=== PATIENT | male | born 1970 | race Caucasian/White ===

== ENCOUNTER 2021-02-15 00:35 | Inpatient (IN) ==
[2021-02-15] MEDS ORDERED: Ondansetron 4 MG/2 ML VIAL IVP ONE ×2 (03:38→04:24)
[2021-02-15] MEDS ORDERED: Ondansetron 4 MG/2 ML VIAL ONE (03:39)
[2021-02-15 04:11] LABS: Basophils % 0.2 %; Hematocrit 39.6 % (37.5-50.1); Hemoglobin 12.4 g/dL (12.9-16.9); Immature Granulocytes % 0.4 % (0-4); Lymphocytes # 0.6 K/mcL (0.6-4.6); Lymphocytes % 6.8 %; Mean Corpuscular HGB Conc 31.3 g/dL (31.6-35.5); Mean Corpuscular Hemoglobin 27.3 pg (28.0-33.3); Mean Platelet Volume 11.5 fL (9.4-12.4); Monocytes # 0.5 K/mcL (0.0-1.3); Monocytes % 5.8 %; Nucleated Red Blood Cells 0.2 /100 WBC (0); Platelet Count 176 K/mcL (140-400); Red Blood Count 4.55 M/mcL (4.19-5.50); Red Cell Distribution Width 15.3 % (11.5-14.5); Segmented Neutrophils % 86.8 %; White Blood Count 9.3 K/mcL (4.3-11.1)
[2021-02-15 04:14] LABS: VBG HCO3 36 mEq/L (21-27); VBG PCO2 66 mmHg (41-51); VBG PH 7.34 pH Units (7.32-7.42); VBG PO2 34 mmHg (25-50)
[2021-02-15] MEDS ORDERED: Prochlorperazine 10 MG/2 ML VIAL IVP ONE (04:25)
[2021-02-15 04:32] LABS: Alanine Aminotransferase 21 Units/L (7-52); Albumin 4.6 g/dL (3.5-5.7); Albumin/Globulin Ratio 1.4 (1.1-2.2); Alkaline Phosphatase 81 Units/L (34-104); Aspartate Amino Transferase 22 Units/L (13-39); BUN/Creatinine Ratio 22 (6-26); Bilirubin,Direct 0.1 mg/dL (0.0-0.2); Bilirubin,Indirect 0.6 mg/dL (0.0-1.0); Bilirubin,Total 0.7 mg/dL (0.3-1.0); Blood Urea Nitrogen 21 mg/dL (6-20); Calcium 10.3 mg/dL (8.6-10.3); Carbon Dioxide 34 mEq/L (23-29); Chloride 97 mEq/L (98-107); Globulin 3.3 g/dL (2.4-3.5); Glucose 244 mg/dL (70-105); Lipase 299 Units/L (11-82); Osmolality,Calculated 299 (280-300); Sodium 139 mEq/L (136-145); Total Protein 7.9 g/dL (6.4-8.9); eGFR For African Americans > 60 (> 60); eGFR For Non-African Americans > 60 (> 60)
[2021-02-15] MEDS ORDERED: 0.9 % Sodium Chloride 1,000 ML IVC ONE (04:47)
[2021-02-15] MEDS ORDERED: Isovue-370 500 ML BOTTLE IVP ONE (04:48)
[2021-02-15] MEDS ORDERED: Naloxone 0.4 MG/ML INJ IVP PRN (05:52)
[2021-02-15] MEDS ORDERED: Ondansetron 4 MG/2 ML VIAL IVP PRN (05:52)
[2021-02-15] MEDS ORDERED: *HR* Promethazine 25 MG/ML VIAL IM PRN (06:00)
[2021-02-15] MEDS ORDERED: *HR* Dextrose 50 % in Water (Vial) 50 ML VIAL IVP PRN (06:07)
[2021-02-15] MEDS ORDERED: D5% in Water 1,000 ML IVC PRN (06:07)
[2021-02-15] MEDS ORDERED: Dextrose Gel 15 GM/37.5 ML TUBE PO PRN ×2 (06:07)
[2021-02-15 06:17] LABS: Adenovirus Not Detected (Not Detect); Bordetella Pertussis Not Detected (Not Detect); Chlamydophila pneumoniae Not Detected (Not Detect); Coronavirus 229E Not Detected (Not Detect); Coronavirus HKU1 Not Detected (Not Detect); Coronavirus NL63 Not Detected (Not Detect); Coronavirus OC43 Not Detected (Not Detect); Human Metapneumovirus Not Detected (Not Detect); Human Rhinovirus/Enterovirus Not Detected (Not Detect); Influenza A Subtype 2009 H1 Not Detected (Not Detect); Influenza B Not Detected (Not Detect); Mycoplasma pneumoniae Not Detected (Not Detect); Parainfluenza Virus 1 Not Detected (Not Detect); Parainfluenza Virus 2 Not Detected (Not Detect); Parainfluenza Virus 3 Not Detected (Not Detect); Parainfluenza Virus 4 Not Detected (Not Detect); Respiratory Syncytial Virus Not Detected (Not Detect); SARS-CoV-2 Not Detected (Not Detect)
[2021-02-15 07:20] LABS: Chol/HDL Ratio 2.5 (0-4.9); Cholesterol 137 mg/dL (< 200); Ethanol < 10 mg/dL (Less than 10); HDL Cholesterol 55 mg/dL (40-59); LDL Cholesterol,Calculated 72 mg/dL (< 100); Magnesium 2.3 mg/dL (1.6-2.6); Triglycerides 51 mg/dL (< 150)
[2021-02-15] MEDS: Insulin LISPRO 300 UNITS/3 ML VIAL SUBQ SCH ×3 (10:00→17:39)
[2021-02-15] MEDS: *HR* Enoxaparin 40 MG/0.4 ML SYRINGE SQ SCH (10:16)
[2021-02-15] MEDS: Ringers Solution, Lactated 1,000 ML IVC SCH ×3 (10:16→20:12)
[2021-02-15 11:00] LABS: Estimated Average Glucose 154 mg/dl
[2021-02-15 13:27] LABS: Bilirubin,Urine Negative (Negative); Blood,Urine Negative (Negative); Clarity,Urine Clear (Clear); Color,Urine Yellow (Yellow); Glucose,Urine (UA) 30 mg/dL (Normal); Ketones,Urine Trace mg/dL (Negative); Leukocyte Esterase,Urine Negative (Negative); Nitrite,Urine Negative (Negative); Protein,Urine 30 mg/dL (Neg-Trace); RBC,Urine 0-3 per hpf (0-3); Specific Gravity,Urine > 1.030 (1.010-1.025); Urobilinogen,Urine Normal (Normal); WBC,Urine 0-3 per hpf (0-3)
[2021-02-15 13:28] LABS: Mucus,Urine Few per lpf (None-Few)
[2021-02-15 13:38] LABS: Amphetamine Screen,Urine Negative ng/mL (Cutoff=1000); Barbiturate Screen,Urine Negative ng/mL (Cutoff=200); Benzodiazepines Screen,Urine Negative ng/mL (Cutoff=200); Cannabinoid Screen,Urine Negative ng/mL (Cutoff = 50); Cocaine Screen,Urine Negative ng/mL (Cutoff= 300); Opiate Screen,Urine Negative ng/mL (Cutoff=300); Phencyclidine Screen,Urine Negative ng/mL (Cutoff=25)
[2021-02-16] MEDS: Ringers Solution, Lactated 1,000 ML IVC SCH ×5 (00:50→23:41)
[2021-02-16 06:15] LABS: Basophils % 0.1 %; Hematocrit 39.8 % (37.5-50.1); Hemoglobin 12.7 g/dL (12.9-16.9); Immature Granulocytes % 0.5 % (0-4); Lymphocytes # 0.7 K/mcL (0.6-4.6); Lymphocytes % 4.8 %; Mean Corpuscular HGB Conc 31.9 g/dL (31.6-35.5); Mean Corpuscular Hemoglobin 27.7 pg (28.0-33.3); Mean Corpuscular Volume 86.9 fL (83.0-100.0); Mean Platelet Volume 11.6 fL (9.4-12.4); Monocytes # 0.9 K/mcL (0.0-1.3); Monocytes % 6.2 %; Neutrophils # 13.4 K/mcL (1.6-8.9); Platelet Count 167 K/mcL (140-400); Red Blood Count 4.58 M/mcL (4.19-5.50); Red Cell Distribution Width 15.6 % (11.5-14.5); Segmented Neutrophils % 88.4 %; White Blood Count 15.2 K/mcL (4.3-11.1)
[2021-02-16 06:35] LABS: Alanine Aminotransferase 17 Units/L (7-52); Albumin 4.2 g/dL (3.5-5.7); Albumin/Globulin Ratio 1.3 (1.1-2.2); Alkaline Phosphatase 67 Units/L (34-104); Aspartate Amino Transferase 17 Units/L (13-39); BUN/Creatinine Ratio 27 (6-26); Bilirubin,Total 0.8 mg/dL (0.3-1.0); Blood Urea Nitrogen 22 mg/dL (6-20); Carbon Dioxide 35 mEq/L (23-29); Chloride 91 mEq/L (98-107); Globulin 3.2 g/dL (2.4-3.5); Glucose 190 mg/dL (70-105); Lipase 76 Units/L (11-82); Osmolality,Calculated 292 (280-300); Potassium 3.4 mEq/L (3.5-5.1); Sodium 137 mEq/L (136-145); Total Protein 7.4 g/dL (6.4-8.9); eGFR For African Americans > 60 (> 60); eGFR For Non-African Americans > 60 (> 60)
[2021-02-16 06:55] LABS: Hypochromasia Present (Not Present); Platelet Estimate Normal (Normal)
[2021-02-16] MEDS ORDERED: Ipratropium/Albuterol Neb 3 ML ONE (07:40)
[2021-02-16] MEDS ORDERED: Potassium Chloride 20 MEQ, Lidocaine 1% 2 ML in 0.9 % Sodium Chloride 250 ML IVPB ONE (07:47)
[2021-02-16] MEDS: Insulin LISPRO 300 UNITS/3 ML VIAL SUBQ SCH ×3 (07:47→17:05)
[2021-02-16] MEDS: *HR* Enoxaparin 40 MG/0.4 ML SYRINGE SQ SCH (08:13)
[2021-02-16] MEDS ORDERED: *HR* LORazepam 2 MG/ML VIAL ONE (08:16)
[2021-02-16] MEDS ORDERED: *HR* LORazepam 2 MG/ML VIAL IVP ONE (08:17)
[2021-02-16] MEDS: MetroNIDAZOLE 500 MG/100 ML 500 MG/100 ML BAG IVPB SCH ×3 (10:03→23:37)
[2021-02-16] MEDS: cefTRIAXone 1,000 MG in 0.9 % Sodium Chloride Mini Bag 100 ML IVPB SCH (10:03)
[2021-02-16] MEDS: Dexmedetomidine HCl 400 MCG/100 ML MLS IVC SCH ×2 (11:45→19:33)
[2021-02-16] MEDS ORDERED: Dexmedetomidine HCl 400 MCG/100 ML MLS IVC ONE (11:46)
[2021-02-16 11:55] LABS: INR 1.2; Prothrombin Time 13.5 Seconds (9.4-12.1)
[2021-02-16] MEDS ORDERED: Potassium Chloride 40 MEQ, Lidocaine 1% 2 ML in 0.9 % Sodium Chloride 500 ML IVPB ONE (13:38)
[2021-02-16 13:57] LABS: BUN/Creatinine Ratio 25 (6-26); Blood Urea Nitrogen 21 mg/dL (6-20); Calcium 9.3 mg/dL (8.6-10.3); Carbon Dioxide 37 mEq/L (23-29); Chloride 92 mEq/L (98-107); Glucose 180 mg/dL (70-105); Magnesium 1.9 mg/dL (1.6-2.6); Osmolality,Calculated 292 (280-300); Potassium 3.3 mEq/L (3.5-5.1); Sodium 137 mEq/L (136-145); eGFR For African Americans > 60 (> 60); eGFR For Non-African Americans > 60 (> 60)
[2021-02-16] MEDS ORDERED: *HR* Succinylcholine 200 MG/10 ML VIAL IVP ONE (15:49)
[2021-02-16] MEDS ORDERED: *HR* Rocuronium Bromide 50 MG/5 ML VIAL ONE (15:49)
[2021-02-16] MEDS ORDERED: Ondansetron 4 MG/2 ML VIAL ONE (15:49)
[2021-02-16] MEDS ORDERED: *HR* Propofol 200 MG/20 ML VIAL IVP ONE (15:49)
[2021-02-16] MEDS ORDERED: Lidocaine -MPF 2% 2 ML VIAL ONE (15:50)
[2021-02-16] MEDS ORDERED: Artificial Tears SOLN 15 ML BOTTLE BOTH EYES PRN (16:55)
[2021-02-16] MEDS: FentaNYL (PF) 1,000 MCG/100 ML IV.SOLN IVC SCH ×2 (18:05→23:36)
[2021-02-16] MEDS ORDERED: Norepinephrine 4 MG/254 ML IV.SOLN IVC SCH (18:30)
[2021-02-16 18:37] LABS: ABG Base Excess 10 mEq/L (-2 to 3); ABG HCO3 34 mEq/L (21-27); ABG Oxygen Saturation 100 % (95-98); ABG PCO2 47 mmHg (35-45); ABG PH 7.47 pH Units (7.32-7.45); ABG PO2 230 mmHg (85-104); ABG TCO2 36 mEq/L (20-26); Blood Gas Modality AF; Blood Gas VT 500 cc
[2021-02-16] MEDS ORDERED: *HR* Midazolam HCl 5 MG/5 ML VIAL IVP ONE ×2 (20:12→20:13)
[2021-02-16] MEDS: Artificial Tears SOLN 15 ML BOTTLE BOTH EYES SCH ×2 (20:34→23:42)
[2021-02-16] MEDS: Chlorhexidine Rinse 15 ML MOUTHWASH MM SCH (20:34)
[2021-02-16] MEDS: Midazolam HCl 50 MG/100 ML IV.SOLN IVC SCH (20:50)
[2021-02-16 23:51] LABS: VBG Ionized Calcium 1.18 mmol/L (1.15-1.35)
[2021-02-17 00:11] LABS: BUN/Creatinine Ratio 24 (6-26); Blood Urea Nitrogen 18 mg/dL (6-20); Calcium 8.7 mg/dL (8.6-10.3); Carbon Dioxide 35 mEq/L (23-29); Chloride 97 mEq/L (98-107); Glucose 171 mg/dL (70-105); Magnesium 1.9 mg/dL (1.6-2.6); Osmolality,Calculated 290 (280-300); Potassium 4.2 mEq/L (3.5-5.1); Sodium 137 mEq/L (136-145); eGFR For African Americans > 60 (> 60); eGFR For Non-African Americans > 60 (> 60)
[2021-02-17] MEDS: Artificial Tears SOLN 15 ML BOTTLE BOTH EYES SCH ×5 (04:23→23:53)
[2021-02-17 04:30] LABS: ABG Base Excess 11 mEq/L (-2 to 3); ABG HCO3 37 mEq/L (21-27); ABG Oxygen Saturation 96 % (95-98); ABG PCO2 56 mmHg (35-45); ABG PH 7.43 pH Units (7.32-7.45); ABG PO2 85 mmHg (85-104); ABG TCO2 39 mEq/L (20-26); Blood Gas VT 400 cc
[2021-02-17 04:55] LABS: Basophils % 0.1 %; Eosinophils % 0.1 %; Hematocrit 29.4 % (37.5-50.1); Immature Granulocytes % 0.3 % (0-4); Lymphocytes # 0.8 K/mcL (0.6-4.6); Lymphocytes % 6.6 %; Mean Corpuscular HGB Conc 31.6 g/dL (31.6-35.5); Mean Corpuscular Volume 88.6 fL (83.0-100.0); Mean Platelet Volume 11.6 fL (9.4-12.4); Monocytes # 0.4 K/mcL (0.0-1.3); Monocytes % 3.8 %; Neutrophils # 10.1 K/mcL (1.6-8.9); Platelet Count 143 K/mcL (140-400); Red Blood Count 3.32 M/mcL (4.19-5.50); Red Cell Distribution Width 15.9 % (11.5-14.5); Segmented Neutrophils % 89.1 %; White Blood Count 11.3 K/mcL (4.3-11.1)
[2021-02-17 05:00] LABS: Hemoglobin 9.3 g/dL (12.9-16.9)
[2021-02-17 05:05] LABS: BUN/Creatinine Ratio 26 (6-26); Blood Urea Nitrogen 19 mg/dL (6-20); Calcium 8.6 mg/dL (8.6-10.3); Carbon Dioxide 36 mEq/L (23-29); Chloride 98 mEq/L (98-107); Glucose 139 mg/dL (70-105); Osmolality,Calculated 289 (280-300); Potassium 4.1 mEq/L (3.5-5.1); Sodium 137 mEq/L (136-145); eGFR For African Americans > 60 (> 60); eGFR For Non-African Americans > 60 (> 60)
[2021-02-17 05:47] LABS: Platelet Estimate Normal (Normal)
[2021-02-17] MEDS: FentaNYL (PF) 1,000 MCG/100 ML IV.SOLN IVC SCH ×2 (06:51→18:14)
[2021-02-17] MEDS: Insulin LISPRO 300 UNITS/3 ML VIAL SUBQ SCH ×2 (07:37→16:43)
[2021-02-17] MEDS: cefTRIAXone 1,000 MG in 0.9 % Sodium Chloride Mini Bag 100 ML IVPB SCH (07:40)
[2021-02-17] MEDS: Midazolam HCl 50 MG/100 ML IV.SOLN IVC SCH ×2 (07:40→22:54)
[2021-02-17] MEDS: Chlorhexidine Rinse 15 ML MOUTHWASH MM SCH ×2 (07:41→19:10)
[2021-02-17] MEDS: MetroNIDAZOLE 500 MG/100 ML 500 MG/100 ML BAG IVPB SCH ×3 (07:41→23:54)
[2021-02-17] MEDS ORDERED: *HR* Midazolam HCl 2 MG/2 ML VIAL ONE ×2 (08:34→10:20)
[2021-02-17] MEDS ORDERED: *HR* Propofol 200 MG/20 ML VIAL IVP ONE (08:35)
[2021-02-17] MEDS ORDERED: *HR* Rocuronium Bromide 50 MG/5 ML VIAL ONE (08:36)
[2021-02-17] MEDS ORDERED: Albumin Human 5% 12.5 GM/250 ML IV.SOLN ONE (08:58)
[2021-02-17] MEDS ORDERED: Pantoprazole 40 MG VIAL IVP SCH (09:00)
[2021-02-17] MEDS ORDERED: *HR* FentaNYL (PF) 100 MCG/2 ML VIAL ONE (09:37)
[2021-02-17] MEDS ORDERED: *HR* HYDROMORPHONE 2 MG/ML VIAL ONE (10:20)
[2021-02-17] MEDS: Ringers Solution, Lactated 1,000 ML IVC SCH ×3 (10:28→19:11)
[2021-02-17] MEDS: *HR* Enoxaparin 40 MG/0.4 ML SYRINGE SQ SCH (10:31)
[2021-02-17] MEDS ORDERED: Naloxone 0.4 MG/ML INJ IVP PRN (12:54)
[2021-02-17] MEDS ORDERED: D5% in Water 1,000 ML IVC PRN (12:54)
[2021-02-17] MEDS ORDERED: Artificial Tears SOLN 15 ML BOTTLE BOTH EYES PRN (12:54)
[2021-02-17] MEDS ORDERED: *HR* Promethazine 25 MG/ML VIAL IM PRN (12:54)
[2021-02-17] MEDS ORDERED: Dextrose Gel 15 GM/37.5 ML TUBE PO PRN ×2 (12:54)
[2021-02-17] MEDS ORDERED: Ondansetron 4 MG/2 ML VIAL IVP PRN (12:54)
[2021-02-17] MEDS: Norepinephrine 4 MG/254 ML IV.SOLN IVC SCH (18:14)
[2021-02-17] MEDS: Dexmedetomidine HCl 400 MCG/100 ML MLS IVC SCH (18:16)
[2021-02-18] MEDS: FentaNYL (PF) 1,000 MCG/100 ML IV.SOLN IVC SCH ×3 (01:58→22:45)
[2021-02-18] MEDS: Artificial Tears SOLN 15 ML BOTTLE BOTH EYES SCH ×6 (03:43→23:14)
[2021-02-18] MEDS: Ringers Solution, Lactated 1,000 ML IVC SCH (03:43)
[2021-02-18 04:47] LABS: ABG Base Excess 7 mEq/L (-2 to 3); ABG HCO3 33 mEq/L (21-27); ABG Oxygen Saturation 96 % (95-98); ABG PCO2 52 mmHg (35-45); ABG PH 7.41 pH Units (7.32-7.45); ABG PO2 81 mmHg (85-104); ABG TCO2 34 mEq/L (20-26); Blood Gas VT 400 cc
[2021-02-18] MEDS: cefTRIAXone 1,000 MG in 0.9 % Sodium Chloride Mini Bag 100 ML IVPB SCH (07:38)
[2021-02-18] MEDS: MetroNIDAZOLE 500 MG/100 ML 500 MG/100 ML BAG IVPB SCH ×3 (07:38→23:14)
[2021-02-18] MEDS: Chlorhexidine Rinse 15 ML MOUTHWASH MM SCH ×2 (07:39→23:13)
[2021-02-18] MEDS: *HR* Enoxaparin 40 MG/0.4 ML SYRINGE SQ SCH (07:39)
[2021-02-18] MEDS: Pantoprazole 40 MG VIAL IVP SCH (07:39)
[2021-02-18 08:18] LABS: BUN/Creatinine Ratio 19 (6-26); Blood Urea Nitrogen 15 mg/dL (6-20); Carbon Dioxide 34 mEq/L (23-29); Chloride 102 mEq/L (98-107); Glucose 78 mg/dL (70-105); Magnesium 1.9 mg/dL (1.6-2.6); Osmolality,Calculated 290 (280-300); Potassium 3.6 mEq/L (3.5-5.1); Sodium 140 mEq/L (136-145); eGFR For African Americans > 60 (> 60); eGFR For Non-African Americans > 60 (> 60)
[2021-02-18] MEDS ORDERED: Ringers Solution, Lactated 1,000 ML IVC SCH (09:15)
[2021-02-18 09:22] LABS: Hematocrit 31.4 % (37.5-50.1); Mean Corpuscular Volume 88.2 fL (83.0-100.0); Red Blood Count 3.56 M/mcL (4.19-5.50); White Blood Count 7.5 K/mcL (4.3-11.1)
[2021-02-18 09:23] LABS: Basophils % 0.4 %; Eosinophils # 0.1 K/mcL (0.0-0.6); Eosinophils % 1.7 %; Immature Granulocytes % 0.9 % (0-4); Lymphocytes # 0.7 K/mcL (0.6-4.6); Lymphocytes % 8.7 %; Mean Corpuscular HGB Conc 31.8 g/dL (31.6-35.5); Mean Corpuscular Hemoglobin 28.1 pg (28.0-33.3); Mean Platelet Volume 11.3 fL (9.4-12.4); Monocytes # 0.4 K/mcL (0.0-1.3); Neutrophils # 6.3 K/mcL (1.6-8.9); Platelet Count 128 K/mcL (140-400); Red Cell Distribution Width 16.4 % (11.5-14.5); Segmented Neutrophils % 83.3 %
[2021-02-18] MEDS: Insulin LISPRO 300 UNITS/3 ML VIAL SUBQ SCH ×5 (09:41→23:25)
[2021-02-18] MEDS: Midazolam HCl 50 MG/100 ML IV.SOLN IVC SCH (09:48)
[2021-02-18] MEDS: *HR* Dextrose 50 % in Water (Vial) 50 ML VIAL IVP PRN ×2 (09:51→12:31)
[2021-02-18] MEDS: WATER IVC SCH (13:30)
[2021-02-18] MEDS: DEXTROSE 50% IVC SCH (13:30)
[2021-02-18] MEDS: RINGERS IVC SCH (13:30)
[2021-02-18] MEDS: LACTATED IVC SCH (13:30)
[2021-02-18] MEDS: Dexmedetomidine HCl 400 MCG/100 ML MLS IVC SCH (14:22)
[2021-02-18] MEDS ORDERED: Insulin LISPRO 300 UNITS/3 ML VIAL SUBQ SCH (18:00)
[2021-02-18] MEDS: Norepinephrine 4 MG/254 ML IV.SOLN IVC SCH (20:52)
[2021-02-19] MEDS: RINGERS IVC SCH ×2 (03:50→19:16)
[2021-02-19] MEDS: LACTATED IVC SCH ×2 (03:50→19:16)
[2021-02-19] MEDS: WATER IVC SCH ×2 (03:50→19:16)
[2021-02-19] MEDS: DEXTROSE 50% IVC SCH ×2 (03:50→19:16)
[2021-02-19] MEDS: Artificial Tears SOLN 15 ML BOTTLE BOTH EYES SCH ×6 (03:52→23:47)
[2021-02-19 04:28] LABS: VBG Ionized Calcium 1.21 mmol/L (1.15-1.35)
[2021-02-19 04:39] LABS: Mean Platelet Volume 11.1 fL (9.4-12.4)
[2021-02-19 04:41] LABS: Hemoglobin 9.8 g/dL (12.9-16.9); Immature Platelets 3.4 % (1.1-6.1); Mean Corpuscular HGB Conc 31.6 g/dL (31.6-35.5); Mean Corpuscular Hemoglobin 28.4 pg (28.0-33.3); Mean Corpuscular Volume 89.9 fL (83.0-100.0); Platelet Count 134 K/mcL (140-400); Red Blood Count 3.45 M/mcL (4.19-5.50); Red Cell Distribution Width 16.2 % (11.5-14.5); White Blood Count 5.5 K/mcL (4.3-11.1)
[2021-02-19 04:42] LABS: ABG Base Excess 8 mEq/L (-2 to 3); ABG HCO3 34 mEq/L (21-27); ABG Oxygen Saturation 95 % (95-98); ABG PCO2 56 mmHg (35-45); ABG PO2 78 mmHg (85-104); ABG TCO2 36 mEq/L (20-26); Blood Gas Modality ASSIST CONTROL; Blood Gas VT 400 cc
[2021-02-19 04:52] LABS: BUN/Creatinine Ratio 13 (6-26); Blood Urea Nitrogen 9 mg/dL (6-20); Calcium 7.8 mg/dL (8.6-10.3); Carbon Dioxide 34 mEq/L (23-29); Chloride 102 mEq/L (98-107); Glucose 155 mg/dL (70-105); Osmolality,Calculated 290 (280-300); Potassium 3.6 mEq/L (3.5-5.1); Sodium 139 mEq/L (136-145); eGFR For African Americans > 60 (> 60); eGFR For Non-African Americans > 60 (> 60)
[2021-02-19] MEDS: Insulin LISPRO 300 UNITS/3 ML VIAL SUBQ SCH ×4 (05:33→23:47)
[2021-02-19] MEDS: FentaNYL (PF) 1,000 MCG/100 ML IV.SOLN IVC SCH (05:35)
[2021-02-19] MEDS: Dexmedetomidine HCl 400 MCG/100 ML MLS IVC SCH ×4 (05:43→23:49)
[2021-02-19 05:48] LABS: Eosinophils # 0.1 K/mcL (0.0-0.6); Lymphocytes # 0.4 K/mcL (0.6-4.6); Monocytes # 0.2 K/mcL (0.0-1.3); Neutrophils # 4.7 K/mcL (1.6-8.9)
[2021-02-19 05:49] LABS: Hypochromasia Present (Not Present); Platelet Estimate Slight Decrease (Normal)
[2021-02-19] MEDS ORDERED: Potassium Phosphate 44 MEQ in 0.9 % Sodium Chloride 250 ML IVPB ONE (06:01)
[2021-02-19] MEDS: Chlorhexidine Rinse 15 ML MOUTHWASH MM SCH ×2 (10:00→21:15)
[2021-02-19] MEDS: *HR* Enoxaparin 40 MG/0.4 ML SYRINGE SQ SCH (10:01)
[2021-02-19] MEDS: Pantoprazole 40 MG VIAL IVP SCH (10:01)
[2021-02-19] MEDS: MetroNIDAZOLE 500 MG/100 ML 500 MG/100 ML BAG IVPB SCH ×3 (10:02→23:51)
[2021-02-19] MEDS: cefTRIAXone 1,000 MG in 0.9 % Sodium Chloride Mini Bag 100 ML IVPB SCH (10:02)
[2021-02-19] MEDS: Norepinephrine 4 MG/254 ML IV.SOLN IVC SCH (12:41)
[2021-02-19] MEDS ORDERED: Lidocaine -MPF 1% 5 ML AMPUL INFILT ONE (15:42)
[2021-02-20] MEDS: Dexmedetomidine HCl 400 MCG/100 ML MLS IVC SCH ×3 (03:30→15:38)
[2021-02-20] MEDS: Insulin LISPRO 300 UNITS/3 ML VIAL SUBQ SCH ×3 (03:31→17:44)
[2021-02-20] MEDS: Artificial Tears SOLN 15 ML BOTTLE BOTH EYES SCH ×5 (03:31→19:51)
[2021-02-20 05:08] LABS: VBG Ionized Calcium 1.15 mmol/L (1.15-1.35)
[2021-02-20 05:14] LABS: Basophils % 0.5 %; Hemoglobin 10.5 g/dL (12.9-16.9); Immature Granulocytes % 1.3 % (0-4)
[2021-02-20 05:16] LABS: Eosinophils # 0.2 K/mcL (0.0-0.6); Eosinophils % 3.5 %; Hematocrit 32.4 % (37.5-50.1); Immature Platelets 3.2 % (1.1-6.1); Lymphocytes # 0.7 K/mcL (0.6-4.6); Lymphocytes % 11.2 %; Mean Corpuscular HGB Conc 32.4 g/dL (31.6-35.5); Mean Corpuscular Hemoglobin 28.3 pg (28.0-33.3); Mean Corpuscular Volume 87.3 fL (83.0-100.0); Mean Platelet Volume 10.8 fL (9.4-12.4); Monocytes # 0.4 K/mcL (0.0-1.3); Monocytes % 6.9 %; Neutrophils # 4.7 K/mcL (1.6-8.9); Platelet Count 128 K/mcL (140-400); Red Blood Count 3.71 M/mcL (4.19-5.50); Red Cell Distribution Width 15.2 % (11.5-14.5); Segmented Neutrophils % 76.6 %; White Blood Count 6.1 K/mcL (4.3-11.1)
[2021-02-20 05:33] LABS: Magnesium 1.7 mg/dL (1.6-2.6); Phosphorous 2.2 mg/dL (2.7-4.5)
[2021-02-20 05:35] LABS: BUN/Creatinine Ratio 13 (6-26); Blood Urea Nitrogen 6 mg/dL (6-20); Calcium 7.8 mg/dL (8.6-10.3); Carbon Dioxide 31 mEq/L (23-29); Chloride 102 mEq/L (98-107); Glucose 200 mg/dL (70-105); Osmolality,Calculated 287 (280-300); Potassium 3.5 mEq/L (3.5-5.1); Sodium 137 mEq/L (136-145); eGFR For African Americans > 60 (> 60); eGFR For Non-African Americans > 60 (> 60)
[2021-02-20] MEDS: MetroNIDAZOLE 500 MG/100 ML 500 MG/100 ML BAG IVPB SCH ×3 (07:53→23:44)
[2021-02-20] MEDS: cefTRIAXone 1,000 MG in 0.9 % Sodium Chloride Mini Bag 100 ML IVPB SCH (07:56)
[2021-02-20] MEDS: *HR* Enoxaparin 40 MG/0.4 ML SYRINGE SQ SCH (07:57)
[2021-02-20] MEDS: Pantoprazole 40 MG VIAL IVP SCH (07:59)
[2021-02-20] MEDS ORDERED: D10% in Water 500 ML IVC PRN (11:34)
[2021-02-20] MEDS: Chlorhexidine Rinse 15 ML MOUTHWASH MM SCH ×2 (11:52→19:51)
[2021-02-20] MEDS: Norepinephrine 4 MG/254 ML IV.SOLN IVC SCH (11:54)
[2021-02-20] MEDS ORDERED: *HR* LORazepam 2 MG/ML VIAL IVP PRN (12:00)
[2021-02-20] MEDS: Haloperidol Lactate 5 MG/ML VIAL IVP SCH ×2 (12:22→23:43)
[2021-02-20] MEDS ORDERED: Clinimix E 5%-15% SOLUTION 2,000 ML with MVI, adult with vitamin K 10 ML IVC SCH (17:00)
[2021-02-21] MEDS: Dexmedetomidine HCl 400 MCG/100 ML MLS IVC SCH ×2 (00:49→09:41)
[2021-02-21] MEDS: Insulin LISPRO 300 UNITS/3 ML VIAL SUBQ SCH ×4 (01:00→18:28)
[2021-02-21 04:06] LABS: VBG Ionized Calcium 1.14 mmol/L (1.15-1.35)
[2021-02-21] MEDS: Artificial Tears SOLN 15 ML BOTTLE BOTH EYES SCH ×4 (04:19→17:19)
[2021-02-21 04:21] LABS: Basophils % 0.6 %; Eosinophils # 0.1 K/mcL (0.0-0.6); Hematocrit 34.3 % (37.5-50.1); Hemoglobin 11.1 g/dL (12.9-16.9); Immature Granulocytes % 1.5 % (0-4); Immature Platelets 4.5 % (1.1-6.1); Lymphocytes # 0.9 K/mcL (0.6-4.6); Lymphocytes % 14.1 %; Mean Corpuscular HGB Conc 32.4 g/dL (31.6-35.5); Mean Corpuscular Hemoglobin 27.5 pg (28.0-33.3); Mean Corpuscular Volume 84.9 fL (83.0-100.0); Mean Platelet Volume 11.4 fL (9.4-12.4); Monocytes # 0.4 K/mcL (0.0-1.3); Monocytes % 5.3 %; Platelet Count 136 K/mcL (140-400); Red Blood Count 4.04 M/mcL (4.19-5.50); Red Cell Distribution Width 14.8 % (11.5-14.5); Segmented Neutrophils % 76.5 %; White Blood Count 6.6 K/mcL (4.3-11.1)
[2021-02-21 04:24] LABS: Neutrophils # 5.1 K/mcL (1.6-8.9)
[2021-02-21 04:36] LABS: BUN/Creatinine Ratio 12 (6-26); Blood Urea Nitrogen 6 mg/dL (6-20); Calcium 7.8 mg/dL (8.6-10.3); Carbon Dioxide 30 mEq/L (23-29); Chloride 101 mEq/L (98-107); Glucose 149 mg/dL (70-105); Magnesium 1.6 mg/dL (1.6-2.6); Osmolality,Calculated 280 (280-300); Phosphorous 2.2 mg/dL (2.7-4.5); Potassium 3.4 mEq/L (3.5-5.1); Sodium 135 mEq/L (136-145); eGFR For African Americans > 60 (> 60); eGFR For Non-African Americans > 60 (> 60)
[2021-02-21 04:37] LABS: Reactive Lymphocytes Present (Not Present)
[2021-02-21 04:38] LABS: Platelet Estimate Normal (Normal)
[2021-02-21] MEDS: cefTRIAXone 1,000 MG in 0.9 % Sodium Chloride Mini Bag 100 ML IVPB SCH (08:46)
[2021-02-21] MEDS: Chlorhexidine Rinse 15 ML MOUTHWASH MM SCH (08:46)
[2021-02-21] MEDS: *HR* Enoxaparin 40 MG/0.4 ML SYRINGE SQ SCH (08:46)
[2021-02-21] MEDS: MetroNIDAZOLE 500 MG/100 ML 500 MG/100 ML BAG IVPB SCH ×3 (08:47→23:38)
[2021-02-21] MEDS: Pantoprazole 40 MG VIAL IVP SCH (08:48)
[2021-02-21] MEDS: Norepinephrine 4 MG/254 ML IV.SOLN IVC SCH (11:39)
[2021-02-21] MEDS ORDERED: risperiDONE 1 MG TABLET PO SCH (14:15)
[2021-02-21] MEDS ORDERED: Clinimix E 5%-15% SOLUTION 2,000 ML with MVI, adult with vitamin K 10 ML IVC SCH ×2 (17:00→18:36)
[2021-02-21] MEDS ORDERED: Dextrose Gel 15 GM/37.5 ML TUBE PO PRN ×2 (18:36)
[2021-02-21] MEDS ORDERED: D10% in Water 500 ML IVC PRN (18:36)
[2021-02-21] MEDS ORDERED: *HR* LORazepam 2 MG/ML VIAL IVP PRN (18:36)
[2021-02-21] MEDS ORDERED: D5% in Water 1,000 ML IVC PRN (18:36)
[2021-02-21] MEDS ORDERED: *HR* Dextrose 50 % in Water (Vial) 50 ML VIAL IVP PRN (18:36)
[2021-02-21] MEDS ORDERED: *HR* Promethazine 25 MG/ML VIAL IM PRN (18:36)
[2021-02-21] MEDS ORDERED: Ondansetron 4 MG/2 ML VIAL IVP PRN (18:36)
[2021-02-21] MEDS ORDERED: Naloxone 0.4 MG/ML INJ IVP PRN (18:36)
[2021-02-21] MEDS: risperiDONE 1 MG TABLET PO SCH (20:37)
[2021-02-22] MEDS ORDERED: Ibuprofen 400 MG TABLET PO PRN (00:05)
[2021-02-22] MEDS: Insulin LISPRO 300 UNITS/3 ML VIAL SUBQ SCH ×4 (00:51→18:51)
[2021-02-22 03:03] LABS: Basophils % 0.5 %; Eosinophils % 0.5 %; Hematocrit 30.7 % (37.5-50.1); Hemoglobin 10.4 g/dL (12.9-16.9); Immature Granulocytes % 3.1 % (0-4); Lymphocytes # 1.2 K/mcL (0.6-4.6); Mean Corpuscular HGB Conc 33.9 g/dL (31.6-35.5); Mean Corpuscular Hemoglobin 28.3 pg (28.0-33.3); Mean Corpuscular Volume 83.4 fL (83.0-100.0); Mean Platelet Volume 10.8 fL (9.4-12.4); Monocytes # 0.5 K/mcL (0.0-1.3); Monocytes % 8.3 %; Neutrophils # 3.9 K/mcL (1.6-8.9); Platelet Count 149 K/mcL (140-400); Red Blood Count 3.68 M/mcL (4.19-5.50); Red Cell Distribution Width 15.4 % (11.5-14.5); Segmented Neutrophils % 66.6 %; White Blood Count 5.8 K/mcL (4.3-11.1)
[2021-02-22 03:21] LABS: BUN/Creatinine Ratio 13 (6-26); Blood Urea Nitrogen 8 mg/dL (6-20); Calcium 7.8 mg/dL (8.6-10.3); Carbon Dioxide 29 mEq/L (23-29); Chloride 102 mEq/L (98-107); Glucose 159 mg/dL (70-105); Magnesium 1.7 mg/dL (1.6-2.6); Osmolality,Calculated 282 (280-300); Phosphorous 2.5 mg/dL (2.7-4.5); Potassium 3.3 mEq/L (3.5-5.1); Sodium 135 mEq/L (136-145); eGFR For African Americans > 60 (> 60); eGFR For Non-African Americans > 60 (> 60)
[2021-02-22] MEDS ORDERED: cefTRIAXone 1,000 MG in 0.9 % Sodium Chloride Mini Bag 100 ML IVPB SCH (08:00)
[2021-02-22] MEDS: Pantoprazole 40 MG VIAL IVP SCH (08:26)
[2021-02-22] MEDS: risperiDONE 1 MG TABLET PO SCH ×2 (08:26→21:53)
[2021-02-22] MEDS: *HR* Enoxaparin 40 MG/0.4 ML SYRINGE SQ SCH (08:26)
[2021-02-22] MEDS ORDERED: Potassium Phosphate 44 MEQ in 0.9 % Sodium Chloride 250 ML IVPB ONE (09:36)
[2021-02-22] MEDS: MetroNIDAZOLE 500 MG/100 ML 500 MG/100 ML BAG IVPB SCH (10:13)
[2021-02-22] MEDS ORDERED: Clinimix E 5%-15% SOLUTION 2,000 ML with MVI, adult with vitamin K 10 ML IVC SCH (17:00)
[2021-02-23] MEDS: Insulin LISPRO 300 UNITS/3 ML VIAL SUBQ SCH ×5 (02:27→20:27)
[2021-02-23] MEDS: risperiDONE 1 MG TABLET PO SCH ×2 (08:51→20:27)
[2021-02-23] MEDS: Pantoprazole 40 MG VIAL IVP SCH (08:51)
[2021-02-23] MEDS: *HR* Enoxaparin 40 MG/0.4 ML SYRINGE SQ SCH (08:52)
[2021-02-23 09:34] LABS: Basophils % 0.7 %; Eosinophils # 0.1 K/mcL (0.0-0.6); Eosinophils % 1.1 %; Hematocrit 32.5 % (37.5-50.1); Hemoglobin 10.5 g/dL (12.9-16.9); Immature Granulocytes % 2.6 % (0-4); Lymphocytes # 1.1 K/mcL (0.6-4.6); Lymphocytes % 21.1 %; Mean Corpuscular HGB Conc 32.3 g/dL (31.6-35.5); Mean Corpuscular Hemoglobin 27.5 pg (28.0-33.3); Mean Corpuscular Volume 85.1 fL (83.0-100.0); Mean Platelet Volume 10.5 fL (9.4-12.4); Monocytes # 0.4 K/mcL (0.0-1.3); Neutrophils # 3.6 K/mcL (1.6-8.9); Platelet Count 155 K/mcL (140-400); Red Blood Count 3.82 M/mcL (4.19-5.50); Red Cell Distribution Width 15.9 % (11.5-14.5); Segmented Neutrophils % 66.5 %; White Blood Count 5.4 K/mcL (4.3-11.1)
[2021-02-23 10:18] LABS: BUN/Creatinine Ratio 13 (6-26); Blood Urea Nitrogen 8 mg/dL (6-20); Calcium 8.3 mg/dL (8.6-10.3); Carbon Dioxide 30 mEq/L (23-29); Chloride 101 mEq/L (98-107); Glucose 178 mg/dL (70-105); Magnesium 1.8 mg/dL (1.6-2.6); Osmolality,Calculated 283 (280-300); Potassium 3.7 mEq/L (3.5-5.1); Sodium 135 mEq/L (136-145); eGFR For African Americans > 60 (> 60); eGFR For Non-African Americans > 60 (> 60)
[2021-02-23 10:29] LABS: Platelet Estimate Normal (Normal)
[2021-02-23] MEDS ORDERED: D5% in Water 1,000 ML IVC PRN (12:15)
[2021-02-23] MEDS ORDERED: *HR* Dextrose 50 % in Water (Vial) 50 ML VIAL IVP PRN (12:15)
[2021-02-23] MEDS ORDERED: Dextrose Gel 15 GM/37.5 ML TUBE PO PRN ×2 (12:15)
[2021-02-23] MEDS ORDERED: Clinimix E 5%-15% SOLUTION 2,000 ML with MVI, adult with vitamin K 10 ML IVC SCH (17:00)
[2021-02-24] MEDS: Insulin LISPRO 300 UNITS/3 ML VIAL SUBQ SCH ×4 (08:10→20:25)
[2021-02-24] MEDS: risperiDONE 1 MG TABLET PO SCH ×2 (08:16→20:28)
[2021-02-24] MEDS: *HR* Enoxaparin 40 MG/0.4 ML SYRINGE SQ SCH (08:17)
[2021-02-24] MEDS: Pantoprazole 40 MG VIAL IVP SCH (08:18)
[2021-02-24 16:58] LABS: Hematocrit 29.2 % (37.5-50.1); Hemoglobin 9.4 g/dL (12.9-16.9); Mean Corpuscular HGB Conc 32.2 g/dL (31.6-35.5); Mean Corpuscular Hemoglobin 27.2 pg (28.0-33.3); Mean Corpuscular Volume 84.6 fL (83.0-100.0); Mean Platelet Volume 10.6 fL (9.4-12.4); Platelet Count 158 K/mcL (140-400); Red Blood Count 3.45 M/mcL (4.19-5.50); Red Cell Distribution Width 16.1 % (11.5-14.5)
[2021-02-24] MEDS ORDERED: Clinimix E 5%-15% SOLUTION 2,000 ML with MVI, adult with vitamin K 10 ML IVC SCH (17:00)
[2021-02-24 17:17] LABS: BUN/Creatinine Ratio 14 (6-26); Blood Urea Nitrogen 10 mg/dL (6-20); Calcium 8.3 mg/dL (8.6-10.3); Carbon Dioxide 30 mEq/L (23-29); Chloride 103 mEq/L (98-107); Glucose 150 mg/dL (70-105); Osmolality,Calculated 282 (280-300); Phosphorous 3.2 mg/dL (2.7-4.5); Potassium 4.3 mEq/L (3.5-5.1); Sodium 135 mEq/L (136-145); eGFR For African Americans > 60 (> 60); eGFR For Non-African Americans > 60 (> 60)
[2021-02-24 17:33] LABS: Eosinophils # 0.3 K/mcL (0.0-0.6); Lymphocytes # 1.2 K/mcL (0.6-4.6); Monocytes # 0.5 K/mcL (0.0-1.3); Neutrophils # 2.8 K/mcL (1.6-8.9)
[2021-02-24 17:34] LABS: Platelet Estimate Normal (Normal)
[2021-02-25 05:25] LABS: Basophils % 0.8 %; Eosinophils # 0.1 K/mcL (0.0-0.6); Eosinophils % 2.2 %; Hematocrit 28.7 % (37.5-50.1); Hemoglobin 9.1 g/dL (12.9-16.9); Immature Granulocytes % 1.6 % (0-4); Lymphocytes # 1.6 K/mcL (0.6-4.6); Lymphocytes % 32.1 %; Mean Corpuscular HGB Conc 31.7 g/dL (31.6-35.5); Mean Corpuscular Hemoglobin 27.2 pg (28.0-33.3); Mean Corpuscular Volume 85.7 fL (83.0-100.0); Mean Platelet Volume 11.1 fL (9.4-12.4); Monocytes # 0.3 K/mcL (0.0-1.3); Monocytes % 6.7 %; Neutrophils # 2.9 K/mcL (1.6-8.9); Platelet Count 166 K/mcL (140-400); Red Blood Count 3.35 M/mcL (4.19-5.50); Red Cell Distribution Width 16.2 % (11.5-14.5); Segmented Neutrophils % 56.6 %; White Blood Count 5.1 K/mcL (4.3-11.1)
[2021-02-25 05:45] LABS: BUN/Creatinine Ratio 16 (6-26); Blood Urea Nitrogen 11 mg/dL (6-20); Calcium 8.4 mg/dL (8.6-10.3); Carbon Dioxide 30 mEq/L (23-29); Chloride 102 mEq/L (98-107); Glucose 166 mg/dL (70-105); Osmolality,Calculated 285 (280-300); Potassium 4.1 mEq/L (3.5-5.1); Sodium 136 mEq/L (136-145); eGFR For African Americans > 60 (> 60); eGFR For Non-African Americans > 60 (> 60)
[2021-02-25 06:26] LABS: Platelet Estimate Normal (Normal)
[2021-02-25] MEDS: risperiDONE 1 MG TABLET PO SCH ×2 (07:29→20:34)
[2021-02-25] MEDS: *HR* Enoxaparin 40 MG/0.4 ML SYRINGE SQ SCH (07:29)
[2021-02-25] MEDS: Pantoprazole 40 MG VIAL IVP SCH (07:29)
[2021-02-25] MEDS: Insulin LISPRO 300 UNITS/3 ML VIAL SUBQ SCH ×4 (07:44→20:34)
[2021-02-25] MEDS ORDERED: Clinimix E 5%-15% SOLUTION 2,000 ML with MVI, adult with vitamin K 10 ML IVC SCH (17:00)
[2021-02-26] MEDS: Insulin LISPRO 300 UNITS/3 ML VIAL SUBQ SCH ×4 (09:18→23:03)
[2021-02-26 10:57] LABS: Hematocrit 32.7 % (37.5-50.1); Hemoglobin 10.5 g/dL (12.9-16.9); Lymphocytes # 2.8 K/mcL (0.6-4.6); Mean Corpuscular HGB Conc 32.1 g/dL (31.6-35.5); Mean Corpuscular Hemoglobin 27.7 pg (28.0-33.3); Mean Corpuscular Volume 86.3 fL (83.0-100.0); Mean Platelet Volume 11.5 fL (9.4-12.4); Platelet Count 218 K/mcL (140-400); Red Blood Count 3.79 M/mcL (4.19-5.50); Red Cell Distribution Width 16.4 % (11.5-14.5); White Blood Count 6.4 K/mcL (4.3-11.1)
[2021-02-26 11:15] LABS: BUN/Creatinine Ratio 16 (6-26); Blood Urea Nitrogen 12 mg/dL (6-20); Calcium 9.1 mg/dL (8.6-10.3); Carbon Dioxide 29 mEq/L (23-29); Chloride 100 mEq/L (98-107); Glucose 195 mg/dL (70-105); Magnesium 1.9 mg/dL (1.6-2.6); Monocytes # 0.1 K/mcL (0.0-1.3); Neutrophils # 3.5 K/mcL (1.6-8.9); Osmolality,Calculated 285 (280-300); Phosphorous 3.7 mg/dL (2.7-4.5); Potassium 4.4 mEq/L (3.5-5.1); Reactive Lymphocytes Present (Not Present); Sodium 135 mEq/L (136-145); eGFR For African Americans > 60 (> 60); eGFR For Non-African Americans > 60 (> 60)
[2021-02-26 11:16] LABS: Platelet Estimate Normal (Normal); Toxic Granulation Present (Not Present)
[2021-02-26] MEDS: risperiDONE 1 MG TABLET PO SCH ×2 (11:34→23:03)
[2021-02-26] MEDS: *HR* Enoxaparin 40 MG/0.4 ML SYRINGE SQ SCH (11:37)
[2021-02-26] MEDS: Pantoprazole 40 MG VIAL IVP SCH (11:57)
[2021-02-27] MEDS: *HR* Enoxaparin 40 MG/0.4 ML SYRINGE SQ SCH (08:03)
[2021-02-27] MEDS: Insulin LISPRO 300 UNITS/3 ML VIAL SUBQ SCH ×4 (08:03→21:04)
[2021-02-27] MEDS: risperiDONE 1 MG TABLET PO SCH ×2 (08:03→21:08)
[2021-02-28] MEDS: *HR* Enoxaparin 40 MG/0.4 ML SYRINGE SQ SCH (08:11)
[2021-02-28] MEDS: risperiDONE 1 MG TABLET PO SCH ×2 (08:11→21:25)
[2021-02-28] MEDS: Insulin LISPRO 300 UNITS/3 ML VIAL SUBQ SCH ×4 (08:11→22:25)
[2021-03-01] MEDS: Insulin LISPRO 300 UNITS/3 ML VIAL SUBQ SCH ×4 (07:50→22:09)
[2021-03-01] MEDS: risperiDONE 1 MG TABLET PO SCH ×2 (07:57→22:09)
[2021-03-01] MEDS: *HR* Enoxaparin 40 MG/0.4 ML SYRINGE SQ SCH (08:00)
[2021-03-01] MEDS ORDERED: *HR* LORazepam 1 MG TABLET PO PRN (10:25)
[2021-03-02] MEDS: risperiDONE 1 MG TABLET PO SCH ×2 (08:33→20:17)
[2021-03-02] MEDS: *HR* Enoxaparin 40 MG/0.4 ML SYRINGE SQ SCH (08:37)
[2021-03-02] MEDS: Insulin LISPRO 300 UNITS/3 ML VIAL SUBQ SCH ×4 (08:37→20:17)
[2021-03-03] MEDS: risperiDONE 1 MG TABLET PO SCH ×2 (08:15→20:10)
[2021-03-03] MEDS: *HR* Enoxaparin 40 MG/0.4 ML SYRINGE SQ SCH (08:15)
[2021-03-03] MEDS: Insulin LISPRO 300 UNITS/3 ML VIAL SUBQ SCH ×4 (08:15→21:57)
[2021-03-04] MEDS: *HR* Enoxaparin 40 MG/0.4 ML SYRINGE SQ SCH (08:44)
[2021-03-04] MEDS: Insulin LISPRO 300 UNITS/3 ML VIAL SUBQ SCH ×4 (08:44→23:08)
[2021-03-04] MEDS: risperiDONE 1 MG TABLET PO SCH ×2 (08:44→23:12)
[2021-03-05] MEDS: Insulin LISPRO 300 UNITS/3 ML VIAL SUBQ SCH ×4 (09:22→21:17)
[2021-03-05] MEDS: *HR* Enoxaparin 40 MG/0.4 ML SYRINGE SQ SCH (12:17)
[2021-03-05] MEDS: risperiDONE 1 MG TABLET PO SCH ×2 (12:18→22:24)
[2021-03-06] MEDS: Insulin LISPRO 300 UNITS/3 ML VIAL SUBQ SCH ×4 (09:01→20:38)
[2021-03-06] MEDS: *HR* Enoxaparin 40 MG/0.4 ML SYRINGE SQ SCH (09:01)
[2021-03-06] MEDS: risperiDONE 1 MG TABLET PO SCH ×2 (09:01→20:38)
[2021-03-07 06:44] LABS: Hematocrit 35.7 % (37.5-50.1); Hemoglobin 10.8 g/dL (12.9-16.9); Mean Corpuscular HGB Conc 30.3 g/dL (31.6-35.5); Mean Corpuscular Hemoglobin 26.6 pg (28.0-33.3); Mean Corpuscular Volume 87.9 fL (83.0-100.0); Mean Platelet Volume 11.1 fL (9.4-12.4); Platelet Count 216 K/mcL (140-400); Red Blood Count 4.06 M/mcL (4.19-5.50); Red Cell Distribution Width 16.3 % (11.5-14.5); White Blood Count 9.3 K/mcL (4.3-11.1)
[2021-03-07] MEDS: Insulin LISPRO 300 UNITS/3 ML VIAL SUBQ SCH ×4 (07:42→21:25)
[2021-03-07] MEDS: *HR* Enoxaparin 40 MG/0.4 ML SYRINGE SQ SCH (07:43)
[2021-03-07 11:09] LABS: Calcium 9.1 mg/dL (8.6-10.3); Chloride 98 mEq/L (98-107); Glucose 194 mg/dL (70-105); Potassium 4.3 mEq/L (3.5-5.1); Sodium 135 mEq/L (136-145)
[2021-03-07] MEDS: risperiDONE 1 MG TABLET PO SCH ×3 (11:44→21:26)
[2021-03-07 12:59] LABS: BUN/Creatinine Ratio 24 (6-26); Blood Urea Nitrogen 16 mg/dL (6-20); Carbon Dioxide 32 mEq/L (23-29); Osmolality,Calculated 286 (280-300); eGFR For African Americans > 60 (> 60); eGFR For Non-African Americans > 60 (> 60)
[2021-03-08] MEDS: Insulin LISPRO 300 UNITS/3 ML VIAL SUBQ SCH ×4 (08:42→21:10)
[2021-03-08] MEDS: *HR* Enoxaparin 40 MG/0.4 ML SYRINGE SQ SCH (15:08)
[2021-03-08] MEDS: risperiDONE 1 MG TABLET PO SCH ×2 (15:10→21:11)
[2021-03-09] MEDS: Insulin LISPRO 300 UNITS/3 ML VIAL SUBQ SCH ×4 (07:31→21:00)
[2021-03-09] MEDS: *HR* Enoxaparin 40 MG/0.4 ML SYRINGE SQ SCH (07:32)
[2021-03-09] MEDS: risperiDONE 1 MG TABLET PO SCH ×3 (15:45→21:00)
[2021-03-10] MEDS: Insulin LISPRO 300 UNITS/3 ML VIAL SUBQ SCH ×4 (08:16→23:03)
[2021-03-10] MEDS: *HR* Enoxaparin 40 MG/0.4 ML SYRINGE SQ SCH (08:17)
[2021-03-10] MEDS: risperiDONE 1 MG TABLET PO SCH ×2 (11:47→21:27)
[2021-03-11] MEDS: Insulin LISPRO 300 UNITS/3 ML VIAL SUBQ SCH ×3 (09:13→17:35)
[2021-03-11] MEDS: risperiDONE 1 MG TABLET PO SCH (09:14)
[2021-03-11] MEDS: *HR* Enoxaparin 40 MG/0.4 ML SYRINGE SQ SCH (09:14)
[2021-03-12] MEDS: risperiDONE 1 MG TABLET PO SCH ×2 (00:24→07:51)
[2021-03-12] MEDS: Insulin LISPRO 300 UNITS/3 ML VIAL SUBQ SCH ×4 (00:24→16:12)
[2021-03-12] MEDS: *HR* Enoxaparin 40 MG/0.4 ML SYRINGE SQ SCH (07:52)
[2021-03-13 08:02] VITALS: PULSE 98
[2021-03-13] MEDS: Insulin LISPRO 300 UNITS/3 ML VIAL SUBQ SCH ×5 (08:04→16:20)
[2021-03-13] MEDS: *HR* Enoxaparin 40 MG/0.4 ML SYRINGE SQ SCH (08:04)
[2021-03-13] MEDS: risperiDONE 1 MG TABLET PO SCH ×2 (09:19→19:15)
[2021-03-13 18:53] VITALS: BP 124/73; TEMP 97.9; O2SAT 99
== END 2021-03-13 19:19 | disposition home or self-care (01) | DRG 326 ==
LOC: EMEROOARM 00:35 → 3BNU 00:35 → 2ANU 02-16 09:02 → ICNU 02-16 12:08 → SUATTDRO 02-16 12:58 → 3ANU 02-21 21:43
PROVIDERS: ADMIT Student in an Organized Health Care Education/Training Program; ATTEND Internal Medicine